=== PATIENT | female | born 1975 | race Caucasian/White ===

== ENCOUNTER 2018-04-04 05:31 | Day surgery (SDC) | payer BC ==
[~2018-04-04] VITALS: Ht 170.2 cm; Wt 105.9 kg
[2018-04-04 06:20] VITALS: BP 137/91
[2018-04-04] MEDS ORDERED: LACTATED RINGERS 1,000 ML IV SCH (06:29)
[2018-04-04] MEDS ORDERED: LABE100T6 PO (06:32)
[2018-04-04] MEDS ORDERED: DIPH25CA61 PO (06:32)
[2018-04-04] MEDS ORDERED: PREN-59 PO (06:32)
[2018-04-04 06:43] LABS: BASOPHILS # (AUTO) 0.02 x10^3/uL (0-0.1); BASOPHILS % (AUTO) 0 % (0-1); EOSINOPHILS # (AUTO) 0.26 x10^3/uL (0-0.4); EOSINOPHILS % (AUTO) 4 % (1-7); LYMPHOCYTES # (AUTO) 2.07 x10^3/uL (1-3.4); LYMPHOCYTES % (AUTO) 28 % (22-44); MD NO; MEAN CORPUSCULAR HEMOGLOBIN 32.1 pg (27.0-34.8); MEAN CORPUSCULAR HGB CONC 34.5 g/dL (32.4-35.8); MEAN CORPUSCULAR VOLUME 92.9 fL (80-100); MONOCYTES # (AUTO) 0.51 x10^3/uL (0.2-0.8); MONOCYTES % (AUTO) 7 % (2-9); NEUTROPHILS # (AUTO) 4.42 x10^3/uL (1.8-6.8); NEUTROPHILS % (AUTO) 61 % (42-75); PLATELET COUNT 382 x10^3/uL (130-400); RED BLOOD COUNT 4.14 x10^6/uL (3.82-5.3); RED CELL DISTRIBUTION WIDTH 13.3 % (9.6-15.2)
[2018-04-04 07:15] LABS: ALBUMIN 3.4 g/dL (3.4-5.0); ANION GAP 10 mmol/L (5-15); CALCIUM 8.8 mg/dL (8.5-10.1); CHLORIDE 109 mmol/L (98-107)
[2018-04-04 07:20] LABS: ALANINE AMINOTRANSFERASE 24 U/L (12-78); ALKALINE PHOSPHATASE 63 U/L (45-117); BILIRUBIN,TOTAL 0.2 mg/dL (0.2-1.0); CREATININE 0.71 mg/dL (0.55-1.02); TOTAL PROTEIN 7.1 g/dL (6.4-8.2)
[2018-04-04] MEDS ORDERED: FENTANYL PF 100 MCG/2ML ONE ×2 (07:27→07:50)
[2018-04-04] MEDS ORDERED: MIDAZOLAM 1 MG/ML, 2ML ONE (07:27)
[2018-04-04] MEDS ORDERED: SCOPOLAMINE PATCH, 1.5MG PATCH.TD72 TD ONE ×4 (07:30→07:46)
[2018-04-04] MEDS ORDERED: ACETAMINOPHEN 500 MG TABLET PO ONE ×2 (07:30→08:30)
[2018-04-04] MEDS ORDERED: ONDANSETRON ODT 8 MG PO ONE (07:30)
[2018-04-04] MEDS ORDERED: DIAZEPAM 5 MG TABLET PO ONE ×2 (07:30→08:30)
[2018-04-04] MEDS ORDERED: ONDANSETRON 2MG/ML, 2ML ONE (07:34)
[2018-04-04] MEDS ORDERED: ONDANSETRON ODT 8 MG ONE (07:40)
[2018-04-04] MEDS ORDERED: ACETAMINOPHEN 500 MG TABLET ONE (07:40)
[2018-04-04] MEDS ORDERED: DEXAMETHASONE 4 MG/ML, 1ML ONE (07:41)
[2018-04-04] MEDS ORDERED: PROPOFOL 10 MG/ML, 20ML ONE (07:53)
[2018-04-04] MEDS ORDERED: ROCURONIUM 10MG/ML,5ML ONE (07:53)
[2018-04-04] MEDS ORDERED: SUCCINYLCHOLINE 20 MG/ML, 10ML ONE (07:53)
[2018-04-04] MEDS ORDERED: ACETAMINOPHEN 650 MG/20.3 ML UDC ONE (08:14)
[2018-04-04] MEDS ORDERED: VASOPRESSIN 20 UNIT/ML, 1ML ONE (08:20)
[2018-04-04] MEDS ORDERED: MEPERIDINE/PF 25MG/0.5ML IVPush PRN (08:30)
[2018-04-04] MEDS ORDERED: MIDAZOLAM 1 MG/ML, 2ML IV PRN (08:30)
[2018-04-04] MEDS ORDERED: LABETALOL 5MG/ML, 20ML IV PRN (08:30)
[2018-04-04] MEDS ORDERED: MORPHINE SULFATE 4 MG/ML, 1ML IVPush PRN (08:30)
[2018-04-04] MEDS ORDERED: ONDANSETRON ODT 8 MG PO PRN (08:30)
[2018-04-04] MEDS ORDERED: PROMETHAZINE 25 MG/ML, 1ML IV PRN (08:30)
[2018-04-04] MEDS ORDERED: FENTANYL PF 100 MCG/2ML IV PRN (08:30)
[2018-04-04] MEDS ORDERED: ONDANSETRON 2MG/ML, 2ML IV PRN (08:30)
[2018-04-04] MEDS ORDERED: PROMETHAZINE 12.5 MG SUPP PR PRN (08:30)
[2018-04-04] MEDS ORDERED: OXYcodone 5 MG/5 ML ORAL.SOL UDC PO PRN (08:30)
[2018-04-04] MEDS ORDERED: HALOPERIDOL 5 MG/ML IV PRN (08:30)
[2018-04-04] MEDS ORDERED: EPHEDRINE 50 MG/ML, 1ML IVPush PRN (08:30)
[2018-04-04] MEDS ORDERED: HYDROmorphone 1 MG/ML, 1ML IV PRN (08:30)
[2018-04-04] MEDS ORDERED: hydrALAzine 20 MG/ML, 1ML IV PRN (08:30)
[2018-04-04] MEDS ORDERED: ALBUTEROL SULFATE 2.5 MG/3 ML NPPB PRN (08:30)
== END 2018-04-04 10:15 | disposition home or self-care (01) ==
LOC: OUT 05:31
PROVIDERS: ATTEND Obstetrics & Gynecology
DX: O02.1 Missed abortion (principal); I10 Essential (primary) hypertension; E66.9 Obesity, unspecified; Z68.36 Body mass index [BMI] 36.0-36.9, adult; J45.909 Unspecified asthma, uncomplicated; Z3A.01 Less than 8 weeks gestation of pregnancy; Z98.890 Other specified postprocedural states; Z88.1 Allergy status to other antibiotic agents
CPT/HCPCS: 36415; 59820; 80053; 85025; 86850; 86900; 88305; J0330; J1100; J2250; J2405; J2704; J3010; J7120